=== PATIENT | male | born 1935 | race Caucasian/White ===

== ENCOUNTER 2022-12-16 20:14 | Emergency (ER) | payer OTHER ==
[~2022-12-16] VITALS: Ht 165.1 cm; Wt 63.5 kg
[2022-12-16] MEDS ORDERED: CHILDREN'S ASPI81 MG PO (20:42)
[2022-12-16] MEDS ORDERED: COZAAR50 MG PO (20:42)
== END 2022-12-16 22:48 | disposition home or self-care (01) ==
LOC: ER 20:14
DX: S70.01XA Contusion of right hip, initial encounter (principal); W18.30XA Fall on same level, unspecified, initial encounter; Y93.89 Activity, other specified; Y92.89 Other specified places as the place of occurrence of the external cause; Y99.9 Unspecified external cause status; I70.8 Atherosclerosis of other arteries

== ENCOUNTER 2024-02-07 21:54 | Emergency (ER) | payer OTHER ==
[~2024-02-07] VITALS: Ht 165.1 cm; Wt 63.5 kg
[~2024-02-07 21:54] MED LIST: CHILDREN'S ASPI81 MG PO; COZAAR50 MG PO
[2024-02-07] MEDS ORDERED: CARVEDILOL ER40 MG (22:04)
[2024-02-07] MEDS ORDERED: TAMS0.4C PO (22:04)
[2024-02-07] MEDS ORDERED: ATORVASTATIN CA10 MG PO (22:04)
[2024-02-07] MEDS ORDERED: PROSCAR5 MG PO (22:04)
[2024-02-07] MEDS ORDERED: KETOROLAC TROMETHAMINE 60 MG VIAL IM ONE (22:45)
[2024-02-07 23:23] LABS: HEMOGLOBIN 12.9 g/dL (13-16.00); MEAN CELL VOLUME 88.6 fL (80.0-100.00); MEAN CORPUSCULAR HEMOGLOBIN 30.2 pg (27.00-32.0); MEAN CORPUSCULAR HGB CONC 34.1 g/dl (32.0-36.0); PLATELET COUNT 150 K/uL (150-450); RED BLOOD COUNT 4.29 M/uL (4.00-6.00)
[2024-02-07 23:36] LABS: ALBUMIN 3.2 gm/dL (3.4-5.0); BILIRUBIN TOTAL 0.33 mg/dL (0.3-1.2); CREATININE SERUM 2.24 mg/dL (0.70-1.30); GFR 27.87; GLOBULINA 4.2 G/DL (2.4-3.5); POTASSIUM 4.71 mEq/L (3.5-5.1); TOTAL PROTEIN 7.4 gm/dL (6.4-8.2)
[2024-02-08 01:13] LABS: PH,URINE 5.5 (5.0-8.0); URINE APPEARANCE Clear; URINE BILIRRUBIN Negative (NEGATIVE); URINE BLOOD Negative; URINE COLOR Yellow; URINE GLUCOSE Negative (NEGATIVE); URINE KETONE Negative (NEGATIVE); URINE LEUKOCYTE Moderate; URINE NITRATE Negative; URINE PROTEIN Negative (NEGATIVE); URINE UROBILINOGEN 0.2 E.U./dl
[2024-02-08 01:17] LABS: URINE BACTERIA 1267.2 uL (0.0-1933); URINE RBC 5.4 uL (0.0-20.8); URINE WBC 499.6 uL (0.0-23.2)
[2024-02-08 01:19] LABS: URINE CAST 0.15 uL (0.0-1.40)
[2024-02-08] MEDS ORDERED: CEPHALEXIN500 MG PO (02:21)
[2024-02-08] MEDS ORDERED: CEFTRIAXONE SODIUM 1,000 MG VIAL IM STA (02:22)
== END 2024-02-08 02:37 ==
LOC: ER 21:56
PROVIDERS: Preventive Medicine Public Health & General Preventive Medicine
DX: N39.0 Urinary tract infection, site not specified (principal); G44.209 Tension-type headache, unspecified, not intractable; I10 Essential (primary) hypertension